=== PATIENT | female | born 1980 | race Caucasian/White ===

== ENCOUNTER → 2016-08-11 | Outpatient (CLI) | payer BC ==
[~2016-08-11] MED LIST: PRENATAL VITAMI1 TA5 PO
== END ==
LOC: BHSO 08:52
DX: F90.0 Attention-deficit hyperactivity disorder, predominantly inattentive type (principal)

== ENCOUNTER → 2017-02-09 | Outpatient (CLI) | payer BC | LOC: BHSO 09:06 | DX: F90.0 Attention-deficit hyperactivity disorder, predominantly inattentive type (principal) ==

== ENCOUNTER → 2017-08-17 | Outpatient (CLI) | payer BC | LOC: BHSO 10:05 | DX: F90.0 Attention-deficit hyperactivity disorder, predominantly inattentive type (principal) | CPT/HCPCS: G0463 ==

== ENCOUNTER → 2018-03-12 | Outpatient (CLI) | payer BC | LOC: BHSO 09:05 | DX: F90.0 Attention-deficit hyperactivity disorder, predominantly inattentive type (principal) | CPT/HCPCS: G0463 ==